=== PATIENT | male | born 1960 | race African-American/Black ===

== ENCOUNTER 2018-04-16 08:10 | Inpatient (IN) | payer MEDICAID ==
[~2018-04-16] VITALS: Ht 185.4 cm; Wt 72.6 kg
[2018-04-16] MEDS ORDERED: SODIUM CHLORIDE 0.9% 1000ML BAG (SEPSIS BOLUS) IV ONE (08:45)
[2018-04-16] MEDS ORDERED: VANCOMYCIN 1 G PREMIX 200 ML IV STA (09:59)
[2018-04-16] MEDS ORDERED: INSULIN REGULAR (DRIP) 100 UNITS in SODIUM CHLORIDE 0.9% 100 ML IV ONE (09:59)
[2018-04-16] MEDS ORDERED: CEFEPIME 1,000 MG in DEXTROSE 5% WATER 50 ML IV STA (09:59)
[2018-04-16] MEDS ORDERED: FUROSEMIDE 100MG/10ML VIAL IV STA (09:59)
[2018-04-16] MEDS ORDERED: ASPIRIN 300MG SUPP PR ONE (10:00)
[2018-04-16] MEDS ORDERED: CALCIUM CHLORIDE 1GM/10ML SYR IV ONE (10:00)
[2018-04-16] MEDS ORDERED: INSULIN REGULAR (HUMULIN R) 300UNITS/3ML SUBCUT ONE (10:00)
[2018-04-16] MEDS ORDERED: SODIUM BICARBONATE 8.4% 1 MEQ/ML 50ML SYR IV ONE (10:00)
[2018-04-16] MEDS ORDERED: ALBUTEROL (0.083%) 2.5MG/3ML NEB HHN ONE (10:00)
[2018-04-16 10:14] LABS: HEMATOCRIT. 40.8 % (42.0-52.0); HEMOGLOBIN. 11.3 g/dL (14.0-18.0); MEAN CORPUSCULAR HEMOGLOBIN 30.1 pg (28.0-32.0); MEAN CORPUSCULAR VOLUME 109.1 fL (80.0-94.0); PLATELET 157 x1000/uL (130-400); RED BLOOD CELL COUNT 3.74 mill/uL (4.7-6.1); RED CELL DISTRIBUTION WIDTH 15.5 % (11.6-14.6)
[2018-04-16 10:21] LABS: CHLORIDE 86 mEq/L (98-107)
[2018-04-16 10:22] LABS: INR 1.1; PROTHROMBIN TIME 11.2 sec (9.1-11.1)
[2018-04-16 10:25] LABS: CLARITY URINE CLOUDY (CLEAR); COLOR URINE YELLOW (YELLOW); KETONES URINE 1+ (NEGATIVE); LEUKOCYTE ESTERASE URINE NEGATIVE (NEGATIVE); NITRITE URINE NEGATIVE (NEGATIVE); OCCULT BLOOD URINE 3+ (NEGATIVE); PROTEIN URINE 1+ (NEGATIVE); SPECIFIC GRAVITY URINE 1.019 (1.005-1.030); UROBILINOGEN URINE 0.2 E.U./dL (0.2-1.0)
[2018-04-16] MEDS ORDERED: SODIUM CHLORIDE 0.45% 1,000 ML IV SCH (10:55)
[2018-04-16 10:56] LABS: PHOSPHORUS 6.3 mg/dL (2.5-4.9)
[2018-04-16 10:57] LABS: PLATELET ESTIMATE NORMAL
[2018-04-16] MEDS ORDERED: HYDROCODONE/ACETAMINOPHEN 5/325MG TABLET PO PRN (11:00)
[2018-04-16] MEDS ORDERED: LEVOFLOXACIN 500MG PREMIX 100 ML IV SCH (11:00)
[2018-04-16] MEDS ORDERED: INSULIN REGULAR (DRIP) 100 UNITS in SODIUM CHLORIDE 0.9% 99 ML IV ONE (11:00)
[2018-04-16] MEDS ORDERED: DIPHENHYDRAMINE 50MG/ML VIAL IV PRN (11:00)
[2018-04-16] MEDS ORDERED: GUAIFENESIN 200MG/10ML SUGAR FREE UDC PO PRN (11:00)
[2018-04-16] MEDS ORDERED: DOCUSATE SODIUM 100MG CAPSULE PO PRN (11:00)
[2018-04-16] MEDS ORDERED: IPRATROPIUM/ALBUTEROL 0.5-3(2.5)MG/3ML NEB INH PRN (11:00)
[2018-04-16] MEDS ORDERED: LORAZEPAM 2MG/ML CPJ IV PRN (11:00)
[2018-04-16] MEDS ORDERED: ENOXAPARIN 40MG/0.4ML SYR SUBCUT SCH (11:00)
[2018-04-16 12:31] LABS: BG BASE EXCESS -28.8 mmol/L (-2.0-2.0); BG CARBOXYHEMOGLOBIN 0.2 % (0.5-1.5); BG FRACTION INSPIRED OXYGEN 21; BG HCO3 ACT 4.1 mmol/L (22.0-26.0); BG METHEMOGLOBIN 0.3 % (0.0-1.5); BG OXYHEMOGLOBIN 97.5 % (94.0-97.0); BG PCO2 24.8 mmHg (35.0-45.0); BG PH 6.834 (7.350-7.450); BG PO2 149.7 mmHg (75.0-100.0); BG SAMPLE SITE RIGHT BRACHIAL; BG TOTAL HEMOGLOBIN 11.3 g/dL (12.0-18.0); BG VENT MODE ROOM AIR
[2018-04-16] MEDS: SODIUM BICARBONATE 100 MEQ in SODIUM CHLORIDE 0.45% 900 ML IV SCH (13:01)
[2018-04-16 13:58] LABS: BG BASE EXCESS -27.1 mmol/L (-2.0-2.0); BG CARBOXYHEMOGLOBIN 0.4 % (0.5-1.5); BG DEOXYHEMOGLOBIN 2.4 % (0.0-5.0); BG FRACTION INSPIRED OXYGEN 21; BG HCO3 ACT 4.3 mmol/L (22.0-26.0); BG METHEMOGLOBIN 0.3 % (0.0-1.5); BG OXYGEN SATURATION 97.6 % (92.0-98.5); BG OXYHEMOGLOBIN 96.9 % (94.0-97.0); BG PCO2 22.4 mmHg (35.0-45.0); BG PH 6.905 (7.350-7.450); BG PO2 128.7 mmHg (75.0-100.0); BG SAMPLE SITE RIGHT BRACHIAL; BG VENT MODE ROOM AIR
[2018-04-16 14:42] LABS: PHOSPHORUS 8.5 mg/dL (2.5-4.9)
[2018-04-16] MEDS ORDERED: INSULIN REGULAR (DRIP) 100 UNITS in SODIUM CHLORIDE 0.9% 100 ML IV SCH (17:45)
[2018-04-16] MEDS: IPRATROPIUM/ALBUTEROL 0.5-3(2.5)MG/3ML NEB HHN SCH (20:55)
[2018-04-16] MEDS ORDERED: NA PHOS,M-B/NA PHOS,DI-BA ENEMA 118ML PR PRN (21:00)
[2018-04-17] VITALS (63 sets, daily range): BP systolic 82–158; BP diastolic 45–126
[2018-04-17] MEDS: IPRATROPIUM/ALBUTEROL 0.5-3(2.5)MG/3ML NEB HHN SCH ×4 (01:30→20:40)
[2018-04-17] MEDS ORDERED: LEVOFLOXACIN 500MG PREMIX 100 ML IV NR (03:00)
[2018-04-17 05:51] LABS: HEMATOCRIT. 31.9 % (42.0-52.0); HEMOGLOBIN. 10.7 g/dL (14.0-18.0); MEAN CORPUSCULAR HEMOGLOBIN 30.7 pg (28.0-32.0); MEAN CORPUSCULAR VOLUME 91.5 fL (80.0-94.0); MEAN PLATELET VOLUME 9.4 fl (7.4-10.4); PLATELET 117 x1000/uL (130-400); RED BLOOD CELL COUNT 3.49 mill/uL (4.7-6.1); RED CELL DISTRIBUTION WIDTH 13.8 % (11.6-14.6)
[2018-04-17 05:56] LABS: CHLORIDE 105 mEq/L (98-107)
[2018-04-17] MEDS ORDERED: NOREPINEPHRINE 32 MG in DEXT 5% WATER 468 ML IV PRN (06:00)
[2018-04-17 06:06] LABS: LDL CHOLESTEROL 32 mg/dL (5-100)
[2018-04-17 06:07] LABS: HDL CHOLESTEROL 71 mg/dL (40-59)
[2018-04-17 06:08] LABS: T4 FREE 1.27 ng/dL (0.76-1.46)
[2018-04-17 06:33] LABS: CREATINE KINASE 8874 IU/L (39-308)
[2018-04-17 07:08] LABS: PLATELET ESTIMATE NORMAL
[2018-04-17] MEDS: SODIUM CHLORIDE 0.45% 1,000 ML IV SCH ×2 (07:40→18:00)
[2018-04-17] MEDS: SODIUM BICARBONATE 100 MEQ in SODIUM CHLORIDE 0.45% 900 ML IV SCH ×2 (07:55→07:56)
[2018-04-17 08:24] LABS: BG BASE EXCESS -9.6 mmol/L (-2.0-2.0); BG CARBOXYHEMOGLOBIN 0.4 % (0.5-1.5); BG DEOXYHEMOGLOBIN 2.9 % (0.0-5.0); BG FRACTION INSPIRED OXYGEN 21; BG HCO3 ACT 14.3 mmol/L (22.0-26.0); BG METHEMOGLOBIN 0.3 % (0.0-1.5); BG OXYGEN SATURATION 97.1 % (92.0-98.5); BG OXYHEMOGLOBIN 96.4 % (94.0-97.0); BG PCO2 25.8 mmHg (35.0-45.0); BG PH 7.362 (7.350-7.450); BG PO2 96.4 mmHg (75.0-100.0); BG SAMPLE SITE RIGHT BRACHIAL; BG TOTAL HEMOGLOBIN 10.8 g/dL (12.0-18.0); BG VENT MODE ROOM AIR
[2018-04-17] MEDS: ASPIRIN 81MG EC TABLET PO SCH (09:00)
[2018-04-17] MEDS: ENOXAPARIN 30MG/0.3ML SYR SUBCUT SCH ×2 (09:00→10:46)
[2018-04-17] MEDS ORDERED: BLOOD SUGAR DIAGNOSTIC STRIP TEST SCH (09:00)
[2018-04-17] MEDS: BLOOD SUGAR DIAGNOSTIC STRIP TEST SCH ×10 (09:06→20:22)
[2018-04-17] MEDS ORDERED: INSULIN REGULAR (DRIP) 100 UNITS in SODIUM CHLORIDE 0.9% 100 ML IV SCH (09:19)
[2018-04-17] MEDS ORDERED: DEXTROSE 50% WATER 50ML SYRINGE IV PRN ×3 (09:30→17:15)
[2018-04-17] MEDS: ONDANSETRON HCL 4MG/2ML INJ IV PRN ×2 (12:52→20:15)
[2018-04-17] MEDS: INSULIN LISPRO 100 UNITS/ML SUBCUT SCH (20:30)
[2018-04-17] MEDS ORDERED: METOPROLOL TARTRATE 50MG TABLET PO NR (21:00)
[2018-04-18] VITALS (44 sets, daily range): BP systolic 105–153; BP diastolic 34–105
[2018-04-18] MEDS: LEVOFLOXACIN 250MG PREMIX 50 ML IV SCH (02:19)
[2018-04-18] MEDS: IPRATROPIUM/ALBUTEROL 0.5-3(2.5)MG/3ML NEB HHN SCH ×4 (03:00→20:27)
[2018-04-18] MEDS: SODIUM CHLORIDE 0.45% 1,000 ML IV SCH (03:30)
[2018-04-18 05:34] LABS: HEMATOCRIT. 35.2 % (42.0-52.0); HEMOGLOBIN. 11.1 g/dL (14.0-18.0); MEAN CORPUSCULAR HEMOGLOBIN 29.8 pg (28.0-32.0); MEAN CORPUSCULAR VOLUME 94.3 fL (80.0-94.0); MEAN PLATELET VOLUME 9.8 fl (7.4-10.4); PLATELET 106 x1000/uL (130-400); RED BLOOD CELL COUNT 3.73 mill/uL (4.7-6.1)
[2018-04-18] MEDS: ONDANSETRON HCL 4MG/2ML INJ IV PRN ×2 (06:05→12:05)
[2018-04-18 06:56] LABS: ATYPICAL LYMPHOCYTES 1; PLATELET ESTIMATE SLIGHTLY DECREASED
[2018-04-18] MEDS: BLOOD SUGAR DIAGNOSTIC STRIP TEST SCH ×11 (07:04→23:30)
[2018-04-18] MEDS: INSULIN LISPRO 100 UNITS/ML SUBCUT SCH ×2 (07:18→12:03)
[2018-04-18] MEDS: ASPIRIN 81MG EC TABLET PO SCH (09:25)
[2018-04-18] MEDS: ENOXAPARIN 30MG/0.3ML SYR SUBCUT SCH (09:26)
[2018-04-18] MEDS: INSULIN GLARGINE UD 100 UNITS/ML SYR SUBCUT SCH (09:27)
[2018-04-18] MEDS ORDERED: DILTIAZEM HCL 5MG/ML 5ML VIAL IV PRN (11:00)
[2018-04-18] MEDS: CARVEDILOL 3.125 MG TABLET PO SCH ×2 (11:24→22:56)
[2018-04-18] MEDS ORDERED: INSULIN GLARGINE UD 100 UNITS/ML SYR SUBCUT NR ×2 (12:00→15:00)
[2018-04-18 12:38] LABS: *AMPHETAMINES SCREEN URINE NEGATIVE (NEGATIVE); *BARBITURATES SCREEN URINE NEGATIVE (NEGATIVE); *BENZODIAZEPINES SCREEN URINE NEGATIVE (NEGATIVE); CANNABINOID URINE SCREEN NEGATIVE (NEGATIVE); METHADONE URINE SCREEN NEGATIVE (NEGATIVE); OPIATES URINE SCREEN NEGATIVE (NEGATIVE); PHENCYCLIDINE URINE SCREEN NEGATIVE (NEGATIVE)
[2018-04-18 12:39] LABS: *COCAINE SCREEN URINE NEGATIVE (NEGATIVE)
[2018-04-18] MEDS ORDERED: DEXTROSE 50% WATER 50ML SYRINGE IV PRN ×2 (15:15)
[2018-04-18] MEDS ORDERED: INSULIN REGULAR (DRIP) 100 UNITS in SODIUM CHLORIDE 0.9% 99 ML IV PRN (15:15)
[2018-04-18 15:53] LABS: BG BASE EXCESS -3.5 mmol/L (-2.0-2.0); BG CARBOXYHEMOGLOBIN 1.1 % (0.5-1.5); BG DEOXYHEMOGLOBIN 2.4 % (0.0-5.0); BG FRACTION INSPIRED OXYGEN 21; BG HCO3 ACT 20.6 mmol/L (22.0-26.0); BG METHEMOGLOBIN 0.5 % (0.0-1.5); BG OXYGEN SATURATION 97.6 % (92.0-98.5); BG PCO2 33.9 mmHg (35.0-45.0); BG PH 7.401 (7.350-7.450); BG SAMPLE SITE RIGHT RADIAL; BG TOTAL HEMOGLOBIN 11.7 g/dL (12.0-18.0); BG VENT MODE ROOM AIR
[2018-04-18] MEDS ORDERED: SODIUM BICARBONATE 100 MEQ in SODIUM CHLORIDE 0.45% 1,000 ML IV SCH (16:00)
[2018-04-18] MEDS: INSULIN REGULAR (DRIP) 100 UNITS in SODIUM CHLORIDE 0.9% 100 ML IV SCH (16:21)
[2018-04-18] MEDS: SODIUM CHLORIDE 0.9% 1,000 ML IV SCH (16:24)
[2018-04-18] MEDS: THIAMINE HCL 100MG TABLET PO SCH (22:55)
[2018-04-19] VITALS (27 sets, daily range): BP systolic 112–168; BP diastolic 76–107
[2018-04-19] MEDS: SODIUM CHLORIDE 0.45% 1,000 ML IV SCH ×2 (00:30→19:58)
[2018-04-19] MEDS: IPRATROPIUM/ALBUTEROL 0.5-3(2.5)MG/3ML NEB HHN SCH ×4 (00:34→20:05)
[2018-04-19] MEDS: BLOOD SUGAR DIAGNOSTIC STRIP TEST SCH ×23 (00:38→23:30)
[2018-04-19] MEDS: SODIUM CHLORIDE 0.9% 1,000 ML IV SCH ×3 (01:30→12:38)
[2018-04-19] MEDS: LEVOFLOXACIN 250MG PREMIX 50 ML IV SCH (03:00)
[2018-04-19 06:24] LABS: HEMATOCRIT. 32.2 % (42.0-52.0); HEMOGLOBIN. 10.5 g/dL (14.0-18.0); MEAN CORPUSCULAR VOLUME 91.7 fL (80.0-94.0); MEAN PLATELET VOLUME 9.1 fl (7.4-10.4); PLATELET 108 x1000/uL (130-400); RED BLOOD CELL COUNT 3.51 mill/uL (4.7-6.1); RED CELL DISTRIBUTION WIDTH 14.1 % (11.6-14.6)
[2018-04-19 07:15] LABS: PLATELET ESTIMATE SLIGHTLY DECREASED
[2018-04-19] MEDS: ASPIRIN 81MG EC TABLET PO SCH (08:54)
[2018-04-19] MEDS: ENOXAPARIN 30MG/0.3ML SYR SUBCUT SCH (08:54)
[2018-04-19] MEDS: THIAMINE HCL 100MG TABLET PO SCH (08:55)
[2018-04-19] MEDS: CARVEDILOL 3.125 MG TABLET PO SCH ×2 (08:55→21:17)
[2018-04-20] VITALS (28 sets, daily range): BP systolic 111–168; BP diastolic 73–138
[2018-04-20] MEDS: BLOOD SUGAR DIAGNOSTIC STRIP TEST SCH ×13 (00:34→21:59)
[2018-04-20] MEDS: IPRATROPIUM/ALBUTEROL 0.5-3(2.5)MG/3ML NEB HHN SCH ×4 (01:15→20:07)
[2018-04-20] MEDS: INSULIN REGULAR (DRIP) 100 UNITS in SODIUM CHLORIDE 0.9% 100 ML IV SCH (04:21)
[2018-04-20 05:46] LABS: HEMATOCRIT. 31.1 % (42.0-52.0); HEMOGLOBIN. 10.1 g/dL (14.0-18.0); MEAN CORPUSCULAR HEMOGLOBIN 30.3 pg (28.0-32.0); MEAN CORPUSCULAR VOLUME 93.2 fL (80.0-94.0); MEAN PLATELET VOLUME 9.3 fl (7.4-10.4); PLATELET 115 x1000/uL (130-400); RED BLOOD CELL COUNT 3.33 mill/uL (4.7-6.1); RED CELL DISTRIBUTION WIDTH 14.7 % (11.6-14.6)
[2018-04-20] MEDS: ASPIRIN 81MG EC TABLET PO SCH (08:21)
[2018-04-20] MEDS: CARVEDILOL 3.125 MG TABLET PO SCH ×2 (08:21→21:39)
[2018-04-20] MEDS: ENOXAPARIN 30MG/0.3ML SYR SUBCUT SCH (08:22)
[2018-04-20] MEDS: THIAMINE HCL 100MG TABLET PO SCH (08:22)
[2018-04-20] MEDS: SODIUM CHLORIDE 0.45% 1,000 ML IV SCH ×2 (08:35→10:01)
[2018-04-20 09:44] LABS: CHLORIDE 109 mEq/L (98-107)
[2018-04-20] MEDS: INSULIN GLARGINE UD 100 UNITS/ML SYR SUBCUT SCH ×2 (10:00→17:06)
[2018-04-20 10:36] LABS: PLATELET ESTIMATE SLIGHTLY DECREASED
[2018-04-20] MEDS: ONDANSETRON HCL 4MG/2ML INJ IV PRN (11:24)
[2018-04-20] MEDS: INSULIN LISPRO 100 UNITS/ML SUBCUT SCH ×3 (11:25→21:58)
[2018-04-21] VITALS (32 sets, daily range): BP systolic 1–157; BP diastolic 51–96
[2018-04-21] MEDS: IPRATROPIUM/ALBUTEROL 0.5-3(2.5)MG/3ML NEB HHN SCH ×4 (02:20→18:00)
[2018-04-21] MEDS: BLOOD SUGAR DIAGNOSTIC STRIP TEST SCH ×4 (06:30→21:00)
[2018-04-21] MEDS: INSULIN LISPRO 100 UNITS/ML SUBCUT SCH ×4 (07:48→21:00)
[2018-04-21] MEDS: ASPIRIN 81MG EC TABLET PO SCH (08:51)
[2018-04-21] MEDS: CARVEDILOL 3.125 MG TABLET PO SCH ×2 (08:51→21:00)
[2018-04-21] MEDS: THIAMINE HCL 100MG TABLET PO SCH (08:51)
[2018-04-21] MEDS: ENOXAPARIN 40MG/0.4ML SYR SUBCUT SCH (08:52)
[2018-04-21] MEDS: THROAT LOZENGES-BENZOCAINE/MENTH/CETYLPYRD CL LOZENGES MM PRN ×2 (08:54→14:41)
[2018-04-21] MEDS: INSULIN GLARGINE UD 100 UNITS/ML SYR SUBCUT SCH (10:15)
[2018-04-21 10:27] LABS: HEMATOCRIT. 27.9 % (42.0-52.0); HEMOGLOBIN. 9.1 g/dL (14.0-18.0); MEAN CORPUSCULAR HEMOGLOBIN 30.6 pg (28.0-32.0); MEAN CORPUSCULAR VOLUME 93.5 fL (80.0-94.0); MEAN PLATELET VOLUME 8.7 fl (7.4-10.4); PLATELET 142 x1000/uL (130-400); RED BLOOD CELL COUNT 2.99 mill/uL (4.7-6.1); RED CELL DISTRIBUTION WIDTH 13.8 % (11.6-14.6)
[2018-04-21 10:39] LABS: CHLORIDE 105 mEq/L (98-107)
[2018-04-21] MEDS: SODIUM CHLORIDE 0.45% 1,000 ML IV SCH (11:16)
[2018-04-21 11:48] LABS: PLATELET ESTIMATE NORMAL
[2018-04-21] MEDS ORDERED: POTASSIUM CHLORIDE 20MEQ TABLET SR PO NR (15:00)
[2018-04-22] VITALS (12 sets, daily range): BP systolic 114–137; BP diastolic 49–85
[2018-04-22] MEDS: ACETAMINOPHEN 325MG TABLET PO PRN ×2 (00:06→10:15)
[2018-04-22] MEDS: SODIUM CHLORIDE 0.45% 1,000 ML IV SCH (00:09)
[2018-04-22] MEDS: IPRATROPIUM/ALBUTEROL 0.5-3(2.5)MG/3ML NEB HHN SCH ×4 (02:29→20:45)
[2018-04-22 05:41] LABS: HEMATOCRIT. 24.7 % (42.0-52.0); HEMOGLOBIN. 8.1 g/dL (14.0-18.0); MEAN CORPUSCULAR HEMOGLOBIN 30.6 pg (28.0-32.0); MEAN CORPUSCULAR VOLUME 93.3 fL (80.0-94.0); MEAN PLATELET VOLUME 8.7 fl (7.4-10.4); PLATELET 182 x1000/uL (130-400); RED BLOOD CELL COUNT 2.65 mill/uL (4.7-6.1); RED CELL DISTRIBUTION WIDTH 13.6 % (11.6-14.6)
[2018-04-22 05:58] LABS: CHLORIDE 104 mEq/L (98-107)
[2018-04-22] MEDS: BLOOD SUGAR DIAGNOSTIC STRIP TEST SCH ×4 (07:45→20:34)
[2018-04-22] MEDS: THIAMINE HCL 100MG TABLET PO SCH (08:31)
[2018-04-22] MEDS: POTASSIUM CHLORIDE 20MEQ TABLET SR PO SCH (08:31)
[2018-04-22] MEDS: ENOXAPARIN 40MG/0.4ML SYR SUBCUT SCH (08:31)
[2018-04-22] MEDS: CARVEDILOL 3.125 MG TABLET PO SCH ×2 (08:31→20:34)
[2018-04-22] MEDS: ASPIRIN 81MG EC TABLET PO SCH (08:31)
[2018-04-22] MEDS: THROAT LOZENGES-BENZOCAINE/MENTH/CETYLPYRD CL LOZENGES MM PRN (08:32)
[2018-04-22] MEDS: INSULIN LISPRO 100 UNITS/ML SUBCUT SCH ×4 (08:32→21:01)
[2018-04-22] MEDS ORDERED: POTASSIUM CHLORIDE 20MEQ TABLET SR PO SCH (09:00)
[2018-04-22] MEDS ORDERED: POTASSIUM CHLORIDE 20MEQ TABLET SR PO NR ×2 (10:15→10:30)
[2018-04-22] MEDS: INSULIN GLARGINE UD 100 UNITS/ML SYR SUBCUT SCH (10:17)
[2018-04-22 13:57] LABS: NUCLEATED RED BLOOD CELLS 1 /100 WBC
[2018-04-22 13:59] LABS: PLATELET ESTIMATE NORMAL
[2018-04-23] VITALS (10 sets, daily range): BP systolic 101–143; BP diastolic 56–88
[2018-04-23 07:20] LABS: HEMATOCRIT. 24.6 % (42.0-52.0); MEAN CORPUSCULAR VOLUME 94.7 fL (80.0-94.0); MEAN PLATELET VOLUME 8.6 fl (7.4-10.4); PLATELET 283 x1000/uL (130-400); RED BLOOD CELL COUNT 2.59 mill/uL (4.7-6.1); RED CELL DISTRIBUTION WIDTH 13.7 % (11.6-14.6)
[2018-04-23] MEDS: BLOOD SUGAR DIAGNOSTIC STRIP TEST SCH ×4 (08:00→21:00)
[2018-04-23] MEDS: ENOXAPARIN 40MG/0.4ML SYR SUBCUT SCH (08:07)
[2018-04-23] MEDS: THIAMINE HCL 100MG TABLET PO SCH (08:09)
[2018-04-23] MEDS: ASPIRIN 81MG EC TABLET PO SCH (08:09)
[2018-04-23] MEDS: CARVEDILOL 3.125 MG TABLET PO SCH ×2 (08:09→21:00)
[2018-04-23] MEDS: INSULIN LISPRO 100 UNITS/ML SUBCUT SCH ×4 (08:10→21:00)
[2018-04-23] MEDS: POTASSIUM CHLORIDE 20MEQ TABLET SR PO SCH (08:12)
[2018-04-23] MEDS ORDERED: ASCORBIC ACID (09:53)
[2018-04-23] MEDS ORDERED: VITAMIN D (09:53)
[2018-04-23] MEDS ORDERED: METFORMIN PO (09:53)
[2018-04-23] MEDS ORDERED: MULTIVITAMIN (09:53)
[2018-04-23] MEDS: INSULIN GLARGINE UD 100 UNITS/ML SYR SUBCUT SCH (10:21)
[2018-04-23 11:56] LABS: CHLORIDE 101 mEq/L (98-107)
[2018-04-23 12:20] LABS: PHOSPHORUS 1.8 mg/dL (2.5-4.9)
[2018-04-23 18:35] LABS: PLATELET ESTIMATE NORMAL
[2018-04-23] MEDS: IPRATROPIUM/ALBUTEROL 0.5-3(2.5)MG/3ML NEB HHN SCH (20:49)
[2018-04-24] MEDS: IPRATROPIUM/ALBUTEROL 0.5-3(2.5)MG/3ML NEB HHN SCH ×3 (01:09→06:00)
[2018-04-24 03:00] VITALS: BP 121/75
[2018-04-24] MEDS: BLOOD SUGAR DIAGNOSTIC STRIP TEST SCH (06:13)
[2018-04-24] MEDS: INSULIN LISPRO 100 UNITS/ML SUBCUT SCH (06:25)
[2018-04-24 08:00] VITALS: BP 116/68
[2018-04-24] MEDS: ASPIRIN 81MG EC TABLET PO SCH (09:00)
[2018-04-24] MEDS: CARVEDILOL 3.125 MG TABLET PO SCH (09:00)
[2018-04-24] MEDS: POTASSIUM CHLORIDE 20MEQ TABLET SR PO SCH (09:00)
[2018-04-24] MEDS: THIAMINE HCL 100MG TABLET PO SCH (09:00)
[2018-04-24] MEDS: ENOXAPARIN 40MG/0.4ML SYR SUBCUT SCH (09:00)
[2018-04-24] MEDS: ACETAMINOPHEN 325MG TABLET PO PRN (09:03)
[2018-04-24 09:27] VITALS: BP 116/68
[2018-04-24] MEDS: INSULIN GLARGINE UD 100 UNITS/ML SYR SUBCUT SCH (10:00)
== END 2018-04-24 11:48 | disposition home or self-care (01) | DRG 469 ==
LOC: ER 08:10 → EDBEDREQ 08:42 → EDBEDREQSVC 10:09 → MICUNO 10:30 → EDBEDREQ 10:34 → EDBEDREQTM 10:34 → ENRESERV 04-17 05:14 → MICUNO 04-17 05:53 → 5EST 04-21 18:30 → 8WST 04-24 03:34
PROVIDERS: ADMIT Internal Medicine; ATTEND Internal Medicine
PROC: 4A00X4Z Measurement of Central Nervous Electrical Activity, External Approach (ICD-10-PCS; principal; 2018-04-19)
DX: N17.0 Acute kidney failure with tubular necrosis (principal); J96.00 Acute respiratory failure, unspecified whether with hypoxia or hypercapnia; G92 Toxic encephalopathy; E11.10 Type 2 diabetes mellitus with ketoacidosis without coma; E44.0 Moderate protein-calorie malnutrition; D69.6 Thrombocytopenia, unspecified; I95.9 Hypotension, unspecified; I42.9 Cardiomyopathy, unspecified; E87.5 Hyperkalemia; E87.1 Hypo-osmolality and hyponatremia; E86.0 Dehydration; M62.82 Rhabdomyolysis; I48.92 Unspecified atrial flutter; I50.9 Heart failure, unspecified; D64.9 Anemia, unspecified; D72.829 Elevated white blood cell count, unspecified; I48.0 Paroxysmal atrial fibrillation; R65.10 Systemic inflammatory response syndrome (SIRS) of non-infectious origin without acute organ dysfunction
CPT/HCPCS: 36415; 36600; 71045; 76700; 80048; 80061; 80076; 80305; 82010; 82375; 82550; 82805; 82962; 83036; 83605; 83735; 83880; 84100; 84145; 84439; 84443; 84484; 93005; 93306; 93970; 94640; 96374; 96375; 99285; J0692; J1650; J1815; J1940; J1956; J2405; J3370; J3490; J7030; J7042; J7050; J7060; J7620

== ENCOUNTER 2019-03-16 15:16 | Inpatient (IN) | payer MEDICAID ==
[~2019-03-16] VITALS: Ht 185.4 cm; Wt 31.8 kg
[~2019-03-16 15:16] MED LIST: ASCORBIC ACID; METFORMIN PO; MULTIVITAMIN; VITAMIN D
[2019-03-16] MEDS ORDERED: ONDANSETRON HCL 4MG/2ML INJ IV STA (15:22)
[2019-03-16] MEDS ORDERED: SODIUM CHLORIDE 0.9% 1000ML BAG (SEPSIS BOLUS) IV ONE (15:30)
[2019-03-16 16:28] LABS: HEMATOCRIT. 37.6 % (42.0-52.0); HEMOGLOBIN. 12.1 g/dL (14.0-18.0); MEAN CORPUSCULAR HEMOGLOBIN 30.4 pg (28.0-32.0); MEAN CORPUSCULAR VOLUME 94.5 fL (80.0-94.0); MEAN PLATELET VOLUME 9.8 fl (7.4-10.4); PLATELET 259 x1000/uL (130-400); RED BLOOD CELL COUNT 3.97 mill/uL (4.7-6.1); RED CELL DISTRIBUTION WIDTH 13.2 % (11.6-14.6)
[2019-03-16 16:34] LABS: CHLORIDE 90 mEq/L (98-107)
[2019-03-16 16:35] LABS: PROTHROMBIN TIME 10.2 sec (9.6-11.0)
[2019-03-16 17:05] LABS: PLATELET ESTIMATE NORMAL
[2019-03-16 17:11] LABS: CLARITY URINE CLEAR (CLEAR); COLOR URINE YELLOW (YELLOW); KETONES URINE 4+ (NEGATIVE); LEUKOCYTE ESTERASE URINE NEGATIVE (NEGATIVE); NITRITE URINE NEGATIVE (NEGATIVE); OCCULT BLOOD URINE NEGATIVE (NEGATIVE); PROTEIN URINE NEGATIVE (NEGATIVE); SPECIFIC GRAVITY URINE 1.021 (1.005-1.030); UROBILINOGEN URINE 0.2 E.U./dL (0.2-1.0)
[2019-03-16] MEDS ORDERED: INSULIN REGULAR (DRIP) 100 UNITS in SODIUM CHLORIDE 0.9% 100 ML IV ONE (17:48)
[2019-03-16] MEDS ORDERED: CEFTRIAXONE 1 G PREMIX 50 ML IV ONE (18:00)
[2019-03-16 19:35] LABS: PHOSPHORUS 3.9 mg/dL (2.5-4.9)
[2019-03-16 19:38] LABS: CHLORIDE 99 mEq/L (98-107)
[2019-03-16] MEDS: ONDANSETRON HCL 4MG/2ML INJ IV PRN (20:37)
[2019-03-16 20:38] LABS: CHLORIDE 98 mEq/L (98-107)
[2019-03-16] MEDS: SODIUM CHLORIDE 0.9% 1,000 ML IV SCH (21:56)
[2019-03-16] MEDS: PANTOPRAZOLE SODIUM 40 MG/VIAL IV SCH (21:59)
[2019-03-16] MEDS ORDERED: DEXTROSE 50% WATER 50ML SYRINGE IV PRN (22:00)
[2019-03-16 23:05] LABS: CHLORIDE 104 mEq/L (98-107)
[2019-03-16] MEDS: ACETAMINOPHEN 325MG TABLET PO PRN (23:21)
[2019-03-17] VITALS (16 sets, daily range): BP systolic 124–171; BP diastolic 64–87
[2019-03-17 00:46] LABS: CHLORIDE 106 mEq/L (98-107)
[2019-03-17] MEDS: SODIUM CHLORIDE 0.9% 1,000 ML IV SCH (03:44)
[2019-03-17 04:10] LABS: HEMATOCRIT. 31.2 % (42.0-52.0); HEMOGLOBIN. 10.1 g/dL (14.0-18.0); MEAN CORPUSCULAR VOLUME 92.7 fL (80.0-94.0); MEAN PLATELET VOLUME 8.5 fl (7.4-10.4); PLATELET 239 x1000/uL (130-400); RED BLOOD CELL COUNT 3.37 mill/uL (4.7-6.1); RED CELL DISTRIBUTION WIDTH 12.8 % (11.6-14.6)
[2019-03-17 04:15] LABS: CHLORIDE 108 mEq/L (98-107)
[2019-03-17 04:21] LABS: PHOSPHORUS 1.9 mg/dL (2.5-4.9)
[2019-03-17 07:13] LABS: CHLORIDE 109 mEq/L (98-107)
[2019-03-17 08:07] LABS: PLATELET ESTIMATE NORMAL
[2019-03-17] MEDS ORDERED: DEXT 5%/0.45% NACL 1000ML 1,000 ML IV SCH (09:45)
[2019-03-17] MEDS ORDERED: DEXTROSE 50% WATER 50ML SYRINGE IV PRN ×3 (10:15→17:15)
[2019-03-17] MEDS ORDERED: POTASSIUM-SODIUM PHOSPHATE POWDER PACKET PO NR (10:15)
[2019-03-17] MEDS: PANTOPRAZOLE SODIUM 40 MG/VIAL IV SCH (10:31)
[2019-03-17] MEDS: ACETAMINOPHEN 325MG TABLET PO PRN ×2 (10:31→18:42)
[2019-03-17] MEDS ORDERED: CLONIDINE 0.1MG TABLET PO PRN (11:45)
[2019-03-17] MEDS: BLOOD SUGAR DIAGNOSTIC STRIP TEST SCH ×9 (11:53→23:00)
[2019-03-17] MEDS: INSULIN LISPRO 100 UNITS/ML SUBCUT SCH ×3 (12:20→21:00)
[2019-03-17 13:46] LABS: CHLORIDE 105 mEq/L (98-107)
[2019-03-17] MEDS: DEXT 5%/0.45% NACL 1000ML 1,000 ML IV SCH ×2 (14:04→21:27)
[2019-03-17 15:54] LABS: *AMPHETAMINES SCREEN URINE NEGATIVE (NEGATIVE); *BARBITURATES SCREEN URINE NEGATIVE (NEGATIVE); *BENZODIAZEPINES SCREEN URINE NEGATIVE (NEGATIVE); *COCAINE SCREEN URINE NEGATIVE (NEGATIVE)
[2019-03-17 15:55] LABS: CANNABINOID URINE SCREEN PRESUMTIVE POSITIVE (NEGATIVE); METHADONE URINE SCREEN NEGATIVE (NEGATIVE); OPIATES URINE SCREEN NEGATIVE (NEGATIVE); PHENCYCLIDINE URINE SCREEN NEGATIVE (NEGATIVE)
[2019-03-17] MEDS ORDERED: INSULIN REGULAR (DRIP) 100 UNITS in SODIUM CHLORIDE 0.9% 99 ML IV ONE (17:00)
[2019-03-17] MEDS ORDERED: INSULIN REGULAR (DRIP) 100 UNITS in SODIUM CHLORIDE 0.9% 99 ML IV SCH (17:13)
[2019-03-17 19:23] LABS: CHLORIDE 104 mEq/L (98-107)
[2019-03-17] MEDS: AMLODIPINE 5MG TABLET PO SCH (21:26)
[2019-03-18] VITALS (24 sets, daily range): BP systolic 121–173; BP diastolic 58–124
[2019-03-18 00:27] LABS: CHLORIDE 105 mEq/L (98-107)
[2019-03-18] MEDS: BLOOD SUGAR DIAGNOSTIC STRIP TEST SCH ×10 (01:00→08:45)
[2019-03-18 05:35] LABS: BASOPHILS % 0.5 % (0.0-2.0); EOSINOPHILS % 0.9 % (0.0-5.0); HEMATOCRIT. 28.5 % (42.0-52.0); HEMOGLOBIN. 9.4 g/dL (14.0-18.0); LYMPHOCYTES % 20.2 % (20.0-50.0); MEAN CORPUSCULAR HEMOGLOBIN 30.5 pg (28.0-32.0); MEAN CORPUSCULAR VOLUME 92.6 fL (80.0-94.0); MEAN PLATELET VOLUME 8.1 fl (7.4-10.4); MONOCYTES % 14.9 % (2.0-8.0); NEUTROPHILS % 63.5 % (40.0-76.0); PLATELET 219 x1000/uL (130-400); RED BLOOD CELL COUNT 3.08 mill/uL (4.7-6.1); RED CELL DISTRIBUTION WIDTH 12.6 % (11.6-14.6)
[2019-03-18] MEDS: DEXT 5%/0.45% NACL 1000ML 1,000 ML IV SCH (05:45)
[2019-03-18] MEDS: INSULIN LISPRO 100 UNITS/ML SUBCUT SCH (07:00)
[2019-03-18] MEDS: ONDANSETRON HCL 4MG/2ML INJ IV PRN (07:40)
[2019-03-18] MEDS: PANTOPRAZOLE SODIUM 40 MG/VIAL IV SCH (08:36)
[2019-03-18] MEDS: AMLODIPINE 5MG TABLET PO SCH (08:37)
[2019-03-18 08:43] LABS: CHLORIDE 106 mEq/L (98-107)
[2019-03-18] MEDS ORDERED: POTASSIUM CHLORIDE 20MEQ TABLET SR PO NR (09:30)
[2019-03-18] MEDS ORDERED: LOSARTAN POTASSIUM 50 MG TABLET PO SCH (09:30)
[2019-03-18] MEDS ORDERED: INSULIN GLARGINE UD 100 UNITS/ML SYR SUBCUT SCH (10:00)
[2019-03-18] MEDS ORDERED: INSULIN LISPRO 100 UNITS/ML SUBCUT NR (10:00)
[2019-03-18] MEDS: ACETAMINOPHEN 325MG TABLET PO PRN (12:26)
== END 2019-03-18 12:45 | disposition home or self-care (01) | DRG 420 ==
LOC: ER 15:16 → 5WST 17:50 → EDBEDREQTM 03-17 06:58 → EDBEDREQDT 03-17 06:58 → EDBEDREQSVC 03-17 06:58 → EDBEDREQ 03-17 08:34 → ENRESERV 03-17 08:35 → MICUNO 03-17 16:20
PROVIDERS: ADMIT Internal Medicine; ATTEND Internal Medicine
DX: E11.10 Type 2 diabetes mellitus with ketoacidosis without coma (principal); E87.8 Other disorders of electrolyte and fluid balance, not elsewhere classified; D64.9 Anemia, unspecified; I10 Essential (primary) hypertension; E87.1 Hypo-osmolality and hyponatremia; K52.9 Noninfective gastroenteritis and colitis, unspecified; Z79.4 Long term (current) use of insulin; Z91.14 Patient's other noncompliance with medication regimen; Z79.899 Other long term (current) drug therapy
CPT/HCPCS: 36415; 71045; 80048; 80053; 80305; 81003; 82962; 83036; 83605; 83735; 84100; 84145; 84484; 85025; 93005; 96365; 96366; 96367; 96375; 96376; 99291; C9113; J0696; J1815; J2405; J7030; J7040; J7042; J7050

== ENCOUNTER 2019-03-20 23:27 | Inpatient (IN) | payer MEDICAID ==
[~2019-03-20] VITALS: Ht 185.4 cm; Wt 75.3 kg
[2019-03-21] VITALS (25 sets, daily range): BP systolic 84–152; BP diastolic 38–99
[2019-03-21] MEDS ORDERED: SODIUM CHLORIDE 0.9% 1,000 ML IV ONE ×2 (00:17)
[2019-03-21] MEDS ORDERED: INSULIN REGULAR (HUMULIN R) UD 100 UNITS/ML SYR SUBCUT ONE (00:30)
[2019-03-21 00:50] LABS: HEMATOCRIT. 34.6 % (42.0-52.0); HEMOGLOBIN. 10.2 g/dL (14.0-18.0); MEAN CORPUSCULAR HEMOGLOBIN 30.4 pg (28.0-32.0); MEAN CORPUSCULAR VOLUME 103.1 fL (80.0-94.0); MEAN PLATELET VOLUME 8.3 fl (7.4-10.4); PLATELET 284 x1000/uL (130-400); RED BLOOD CELL COUNT 3.35 mill/uL (4.7-6.1); RED CELL DISTRIBUTION WIDTH 14.8 % (11.6-14.6)
[2019-03-21 00:59] LABS: CHLORIDE 94 mEq/L (98-107); PROTHROMBIN TIME 10.3 sec (9.6-11.0)
[2019-03-21] MEDS ORDERED: INSULIN REGULAR (HUMULIN R) 300UNITS/3ML SUBCUT NR (01:00)
[2019-03-21 01:45] LABS: BG CARBOXYHEMOGLOBIN 0.3 % (0.5-1.5); BG DEOXYHEMOGLOBIN 1.7 % (0.0-5.0); BG FRACTION INSPIRED OXYGEN 21; BG METHEMOGLOBIN 0.3 % (0.0-1.5); BG OXYGEN SATURATION 98.3 % (92.0-98.5); BG OXYHEMOGLOBIN 97.7 % (94.0-97.0); BG PCO2 < 8.9 mmHg (35.0-45.0); BG PH 7.101 (7.350-7.450); BG PO2 153.5 mmHg (75.0-100.0); BG SAMPLE SITE RIGHT BRACHIAL; BG TOTAL HEMOGLOBIN 10.2 g/dL (12.0-18.0); BG VENT MODE ROOM AIR
[2019-03-21] MEDS ORDERED: INSULIN REGULAR (DRIP) 100 UNITS in SODIUM CHLORIDE 0.9% 100 ML IV NR (02:13)
[2019-03-21] MEDS ORDERED: POTASSIUM CHLORIDE 20MEQ TABLET SR PO ONE (02:15)
[2019-03-21] MEDS ORDERED: INSULIN REGULAR (HUMULIN R) UD 100 UNITS/ML SYR IV ONE (02:15)
[2019-03-21 02:36] LABS: PLATELET ESTIMATE NORMAL
[2019-03-21] MEDS ORDERED: INSULIN REGULAR (HUMULIN R) 300UNITS/3ML IV NR (02:45)
[2019-03-21 03:46] LABS: CLARITY URINE CLEAR (CLEAR); COLOR URINE YELLOW (YELLOW); KETONES URINE 3+ (NEGATIVE); LEUKOCYTE ESTERASE URINE NEGATIVE (NEGATIVE); NITRITE URINE NEGATIVE (NEGATIVE); OCCULT BLOOD URINE TRACE (NEGATIVE); PROTEIN URINE TRACE (NEGATIVE); SPECIFIC GRAVITY URINE 1.019 (1.005-1.030); UROBILINOGEN URINE 0.2 E.U./dL (0.2-1.0)
[2019-03-21] MEDS: SODIUM CHLORIDE 0.9% 1,000 ML IV SCH ×2 (05:13→15:13)
[2019-03-21] MEDS ORDERED: MORPHINE SULFATE 2 MG/ML CPJ (NOT FOR IM USE) IV PRN (05:15)
[2019-03-21] MEDS ORDERED: CLONIDINE 0.1MG TABLET PO PRN (05:15)
[2019-03-21] MEDS ORDERED: INSULIN REGULAR (DRIP) 100 UNITS in SODIUM CHLORIDE 0.9% 100 ML IV SCH (05:15)
[2019-03-21] MEDS ORDERED: DOCUSATE SODIUM 100MG CAPSULE PO PRN (05:15)
[2019-03-21] MEDS ORDERED: ONDANSETRON HCL 4MG/2ML INJ IV PRN (05:15)
[2019-03-21] MEDS ORDERED: MAGNESIUM/ALUMINUM HYDROXIDE/SIMETHICONE 30ML UDC PO PRN (05:15)
[2019-03-21 05:23] LABS: BETA HYDROXYBUTYRATE 13.7 mMol/L (0.0-0.3)
[2019-03-21 06:51] LABS: CHLORIDE 106 mEq/L (98-107)
[2019-03-21] MEDS: FAMOTIDINE 20MG/2ML VIAL IV SCH (06:52)
[2019-03-21 06:56] LABS: PHOSPHORUS 5.1 mg/dL (2.5-4.9)
[2019-03-21 07:05] LABS: CHLORIDE 106 mEq/L (98-107)
[2019-03-21 07:06] LABS: PHOSPHORUS 5.3 mg/dL (2.5-4.9)
[2019-03-21 10:11] LABS: BASOPHILS % 0.4 % (0.0-2.0); HEMOGLOBIN. 9.8 g/dL (14.0-18.0); LYMPHOCYTES % 7.6 % (20.0-50.0); MEAN CORPUSCULAR HEMOGLOBIN 30.2 pg (28.0-32.0); MEAN CORPUSCULAR VOLUME 95.7 fL (80.0-94.0); MEAN PLATELET VOLUME 7.8 fl (7.4-10.4); MONOCYTES % 6.8 % (2.0-8.0); NEUTROPHILS % 85.2 % (40.0-76.0); PLATELET 317 x1000/uL (130-400); RED BLOOD CELL COUNT 3.24 mill/uL (4.7-6.1); RED CELL DISTRIBUTION WIDTH 13.6 % (11.6-14.6)
[2019-03-21 10:18] LABS: CHLORIDE 110 mEq/L (98-107)
[2019-03-21 12:01] LABS: BG BASE EXCESS -15.2 mmol/L (-2.0-2.0); BG CARBOXYHEMOGLOBIN 0.1 % (0.5-1.5); BG DEOXYHEMOGLOBIN 1.9 % (0.0-5.0); BG FRACTION INSPIRED OXYGEN 21; BG HCO3 ACT 9.6 mmol/L (22.0-26.0); BG METHEMOGLOBIN 0.3 % (0.0-1.5); BG OXYGEN SATURATION 98.1 % (92.0-98.5); BG OXYHEMOGLOBIN 97.7 % (94.0-97.0); BG PCO2 20.8 mmHg (35.0-45.0); BG PH 7.283 (7.350-7.450); BG PO2 112.8 mmHg (75.0-100.0); BG SAMPLE SITE RIGHT BRACHIAL; BG TOTAL HEMOGLOBIN 10.8 g/dL (12.0-18.0); BG VENT MODE ROOM AIR
[2019-03-21] MEDS ORDERED: INSULIN REGULAR (DRIP) 100 UNITS in SODIUM CHLORIDE 0.9% 99 ML IV SCH (12:01)
[2019-03-21] MEDS ORDERED: DEXTROSE 50% WATER 50ML SYRINGE IV PRN ×2 (12:15)
[2019-03-21] MEDS: BLOOD SUGAR DIAGNOSTIC STRIP TEST SCH ×9 (13:00→22:42)
[2019-03-21] MEDS: DEXT 5%/0.45% NACL 1000ML 1,000 ML IV SCH ×2 (13:14→23:00)
[2019-03-21] MEDS: ENOXAPARIN 40MG/0.4ML SYR SUBCUT SCH (13:14)
[2019-03-21] MEDS: ACETAMINOPHEN 325MG TABLET PO PRN (13:14)
[2019-03-21 13:18] LABS: PHOSPHORUS 2.8 mg/dL (2.5-4.9)
[2019-03-21 20:49] LABS: CHLORIDE 112 mEq/L (98-107)
[2019-03-22] VITALS (24 sets, daily range): BP systolic 92–160; BP diastolic 47–89
[2019-03-22] MEDS: BLOOD SUGAR DIAGNOSTIC STRIP TEST SCH ×5 (00:11→20:33)
[2019-03-22] MEDS: SODIUM CHLORIDE 0.9% 1,000 ML IV SCH (01:13)
[2019-03-22 06:08] LABS: BASOPHILS % 0.3 % (0.0-2.0); EOSINOPHILS % 0.1 % (0.0-5.0); HEMATOCRIT. 27.8 % (42.0-52.0); HEMOGLOBIN. 9.1 g/dL (14.0-18.0); LYMPHOCYTES % 9.8 % (20.0-50.0); MEAN CORPUSCULAR HEMOGLOBIN 30.5 pg (28.0-32.0); MEAN CORPUSCULAR VOLUME 92.9 fL (80.0-94.0); MEAN PLATELET VOLUME 7.8 fl (7.4-10.4); MONOCYTES % 6.1 % (2.0-8.0); NEUTROPHILS % 83.7 % (40.0-76.0); PLATELET 277 x1000/uL (130-400); RED CELL DISTRIBUTION WIDTH 13.1 % (11.6-14.6)
[2019-03-22 06:22] LABS: CHLORIDE 109 mEq/L (98-107)
[2019-03-22 06:34] LABS: BETA HYDROXYBUTYRATE 0.9 mMol/L (0.0-0.3)
[2019-03-22] MEDS: ENOXAPARIN 40MG/0.4ML SYR SUBCUT SCH (09:45)
[2019-03-22] MEDS: FAMOTIDINE 20MG/2ML VIAL IV SCH (09:45)
[2019-03-22] MEDS: ACETAMINOPHEN 325MG TABLET PO PRN (10:50)
[2019-03-22] MEDS: DEXT 5%/0.45% NACL 1000ML 1,000 ML IV SCH (10:51)
[2019-03-22] MEDS ORDERED: BLOOD SUGAR DIAGNOSTIC STRIP TEST SCH (11:30)
[2019-03-22] MEDS: INSULIN GLARGINE UD 100 UNITS/ML SYR SUBCUT SCH (12:36)
[2019-03-22] MEDS ORDERED: DEXTROSE 50% WATER 50ML SYRINGE IV PRN (13:00)
[2019-03-22] MEDS ORDERED: METOCLOPRAMIDE HCL 10MG/2ML VIAL IV SCH (13:15)
[2019-03-22] MEDS: METOCLOPRAMIDE HCL 10MG/2ML VIAL IV SCH (18:52)
[2019-03-22] MEDS: INSULIN LISPRO 100 UNITS/ML SUBCUT SCH ×2 (19:21→20:33)
[2019-03-23] VITALS: BP 141/81
[2019-03-23] MEDS: METOCLOPRAMIDE HCL 10MG/2ML VIAL IV SCH ×3 (00:07→12:09)
[2019-03-23] MEDS: DEXT 5%/0.45% NACL 1000ML 1,000 ML IV SCH (00:07)
[2019-03-23 04:00] VITALS: BP 157/85
[2019-03-23 06:59] LABS: BASOPHILS % 0.9 % (0.0-2.0); EOSINOPHILS % 0.2 % (0.0-5.0); HEMATOCRIT. 28.2 % (42.0-52.0); HEMOGLOBIN. 9.4 g/dL (14.0-18.0); LYMPHOCYTES % 16.2 % (20.0-50.0); MEAN CORPUSCULAR VOLUME 93.2 fL (80.0-94.0); MEAN PLATELET VOLUME 7.8 fl (7.4-10.4); MONOCYTES % 7.3 % (2.0-8.0); NEUTROPHILS % 75.4 % (40.0-76.0); PLATELET 252 x1000/uL (130-400); RED BLOOD CELL COUNT 3.02 mill/uL (4.7-6.1); RED CELL DISTRIBUTION WIDTH 13.3 % (11.6-14.6)
[2019-03-23 07:33] LABS: CHLORIDE 107 mEq/L (98-107)
[2019-03-23] MEDS: BLOOD SUGAR DIAGNOSTIC STRIP TEST SCH ×2 (07:56→12:18)
[2019-03-23 08:00] VITALS: BP 123/79
[2019-03-23] MEDS: FAMOTIDINE 20MG/2ML VIAL IV SCH (08:49)
[2019-03-23] MEDS: ENOXAPARIN 40MG/0.4ML SYR SUBCUT SCH (08:50)
[2019-03-23] MEDS: ACETAMINOPHEN 325MG TABLET PO PRN (09:18)
[2019-03-23] MEDS: INSULIN LISPRO 100 UNITS/ML SUBCUT SCH ×2 (09:21→12:56)
[2019-03-23] MEDS ORDERED: POTASSIUM CHLORIDE 20MEQ TABLET SR PO NR (10:00)
[2019-03-23] MEDS: INSULIN GLARGINE UD 100 UNITS/ML SYR SUBCUT SCH (10:29)
[2019-03-23 12:00] VITALS: BP 130/82
[2019-03-23 13:39] VITALS: BP 130/82
== END 2019-03-23 15:11 | disposition home or self-care (01) | DRG 48 ==
LOC: ER 23:27 → MICUNO 03-21 03:34 → ENRESERV 03-21 10:46 → 6EST 03-22 18:13
PROVIDERS: ADMIT Hospitalist; ATTEND Hospitalist
DX: E11.43 Type 2 diabetes mellitus with diabetic autonomic (poly)neuropathy (principal); E87.1 Hypo-osmolality and hyponatremia; E11.10 Type 2 diabetes mellitus with ketoacidosis without coma; K31.84 Gastroparesis; D63.8 Anemia in other chronic diseases classified elsewhere; D72.829 Elevated white blood cell count, unspecified; I10 Essential (primary) hypertension; Z79.4 Long term (current) use of insulin
CPT/HCPCS: 36415; 36600; 71045; 80048; 80053; 81003; 82010; 82375; 82805; 82962; 83036; 83605; 83735; 83880; 84100; 84145; 84484; 85025; 93005; 96374; 99291; A6261; J1650; J1815; J2405; J2765; J3490; J7030; J7050